=== PATIENT | male | born 1980 | race Caucasian/White ===

== ENCOUNTER 2024-10-01 09:45 | Emergency (ER) | payer OTHER, SELFPAY ==
[2024-10-01 09:53] VITALS: BP 134/93
--- NOTE | 2024-10-01 10:44 | ED.GENMED ---
History of Present Illness
General
Chief Complaint: Musculo-Skeletal Complaint
Source: patient
Time Seen by Provider: 10/01/24 10:36
History of Present Illness
History of Present Illness:
44-year-old male presenting the emergency department for evaluation of left groin pain and ecchymosis that started this past while shoveling and slipped on ice stating his left leg gave out and he slid onto the ground injuring the left
groin. Patient states that he had considerable pain and difficulty moving the left leg and ambulating secondary to the pain which has slightly improved over the last day or so but today noticed increased bruising prompting him to come to the ER
wanting further evaluation. No other injuries sustained. Patient denies any anticoagulant use
Past History
Past History
ED Past Medical History: None
ED Past Surgical History: None
Social History
Tobacco: Non-smoker
Alcohol: None
Drug: None
Personal:
Living: with family
Employment: Employed
Review of Systems
Review of Systems
All Other Systems: ROS reviewed and negative except as documented in HPI and ROS
Phy Exam
Physical Exam
Physical Exam:
GENERAL: Alert , in no apparent distress
EYE: conjunctiva clear
Head: Normocephalic atraumatic
NECK: Supple,
ENT: mmm.
LUNGS: no acute respiratory distress
NEUROLOGICAL: Alert and oriented
SKIN: Warm and dry, skin intact.
MUSCULOSKELETAL: LLE: No obvious deformity, erythema or edema. There is ecchymosis along the anteromedial thigh with mild tenderness. Patient does allow for range of motion but states abduction and adduction seem to hurt the most. Extremity is
otherwise warm well-perfused. Easily palpable pedal and tibial pulse. Cap refill less than 2 seconds.
PSYCH: Normal and appropriate interaction.
Scores
Heart Failure Risk
Heart Failure Risk Score: Not Applicable
Heart Score for Chest Pain Patients
STEMI patient?: Not applicable
Withdrawal Assessment of Alcohol
Withdrawal Assessment Completed?: Not applicable
Course
Vital Signs
Initial and Last Documented VS:
Initial Vital Signs
Temp Pulse Resp BP Pulse Ox
98.5 F 79 18 134/93 98
10/01/24 09:53 10/01/24 09:53 10/01/24 09:53 10/01/24 09:53 10/01/24 09:53
Last Documented Vital Signs
Temp Pulse Resp BP Pulse Ox
98.5 F 79 18 134/93 98
10/01/24 09:53 10/01/24 09:53 10/01/24 09:53 10/01/24 09:53 10/01/24 09:53
MDM/Problems Addressed
Differential Diagnosis Includes:
muscle strain, no concern for DVT/SVT, no symptoms/signs to suggest active bleeding
MDM/Problems Addressed:
44-year-old male presenting the emergency department for evaluation of left groin pain and bruising secondary to an accidental fall occurring this past . Patient does note the pain is somewhat improved although still having some pain with
range of motion, mainly abduction and adduction. 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 NSAIDs/Tylenol as needed for pain, ice and elevation of extremity. Follow-up with orthopedics as needed. Otherwise stable
for discharge home.
*Pulse Oximetry
Patient hypoxic: no
*Critical Care Note
Total Time (30-74mins, 75-104mins- exclusive of procedures): Not Applicable
ED Attending Note
-
Portions of this chart may have been created with voice recognition software.� Occasional wrong word or��sound alike� substitutions may have occurred due to the inherent limitations of voice recognition software.
Discharge Plan
Departure
Patient Disposition: Home (Routine Discharge)
Date of Disposition: 10/01/24
Time of Disposition: 10:44
Patient with high blood pressure during this ER visit?: Yes
Discharge Problem:
Strain of left groin
Instructions: Muscle Strain (DC)
Referrals:
Delvis Rodriguez MD [Active] - (Ortho - Call for appointment as needed)
Interventions
Interventions:
*Risk Screen - Suicide Last Done: 10/01/24 09:53
*General Assessment Last Done: 10/01/24 09:53
*Neglect/Abuse Screening Last Done: 10/01/24 09:53
ED- Fall Risk Assessment Last Done: 10/01/24 10:50
*ED COVID-19 Vaccine History Last Done: 10/01/24 10:50
*Nursing Disposition Last Done: 10/01/24 11:00
ED-Musculoskeletal Assessment Last Done: 10/01/24 10:50
Discharge Date and Time
Discharge Date/Time: 10/01/24 11:19
Print Language: JAPANESE
== END 2024-10-01 11:19 | disposition home or self-care (01) ==
LOC: EMR 09:45
PROVIDERS: EMERGENCY PHYSICIAN Student in an Organized Health Care Education/Training Program; FAMILY PHYSICIAN Family Medicine
DX: S39.011A Strain of muscle, fascia and tendon of abdomen, initial encounter (principal); W00.0XXA Fall on same level due to ice and snow, initial encounter; R03.0 Elevated blood-pressure reading, without diagnosis of hypertension
CPT/HCPCS: 99282